=== PATIENT | male | born 1940 | race Caucasian/White ===

== ENCOUNTER → 2019-06-13 09:55 | Outpatient (CLI) | payer MEDICARE, BC ==
--- NOTE | 2019-06-16 11:13 | EC ---
PATIENT:CARMELA ALLEN DATE OF SERVICE: 06/13/19 SEX: M MEDICAL RECORD: [id number] DATE OF : 44 LOCATION:[facility] AGE OF PATIENT: 79 ADMISSION DATE: 06/13/19 REFERRING PHYSICIAN: INTERPRETING PHYSICIAN: THEA HUANG MD ECHOCARDIOGRAM REPORT ECHO CHARGES 4 ECHO COMPLETE Date: 06/13/19 CLINICAL DIAGNOSIS: CAD/DYSPNEA ON EXERTION/FATIGUE/ASSESS EF AND VAVLES HX OF RADITION ECHOCARDIOGRAPHIC MEASUREMENTS (adult normal given) AC root (d.<3.7cm) 4.2 cm LV Septum d (<1.2 cm> 1.0 cm Valve Excursion 1.0 cm LV Septum (systole) 1.3 cm Left Atria (s.<4.0cm> 4.1 cm LVPW d(<1.2cm) 1.4 cm RV (d.<2.3cm) 4.7 cm LVPW (sytole) 2.0 cm LV diastole(<5.6CM) 5.8 cm MV E-F(>70mm/sec) cm LV systole 3.7 cm LVOT Diameter 2.0 cm MV exc.(>10mm) cm Est.ejection fraction (50-75%) % DOPPLER: LVIT cm/sec A 148.0cm/sec E 116.0 cm/sec LA cm/sec RVSP 34 mmHg LVOT 114 cm/sec AOP1/2T m/s Asc. Ao 169 cm/sec RVOT 99 cm/sec RA cm/sec PA 105 cm/sec AV Gradient Peak 11.47mmHg AV Mean 6.07 mmHg AV Area 2.4 cm MV Gradient Peak 9.90 mmHg MV Mean 3.44 mmHg MV Area cm COMMENTS: Bridge Gang Worker: Melissa HARRIS Outreach Rep: 1 Dr. Huang TAPE# PACS Pericardial Effusion N DATE OF SERVICE: FINDINGS: 1. Left ventricular chamber size is mildly dilated. Left ventricular systolic function is preserved at 60%. 2. Left atrium is enlarged at 4.1 cm. Right atrium and right ventricle chamber sizes are as well mildly dilated. 3. Valvular structures have normal structure and motion. 4. Doppler interrogation reveals mild mitral regurgitation, mild tricuspid ECHOCARDIOGRAM REPORT [id number] CARMELA ALLEN regurgitation, no other valvular insufficiency or stenosis. Pulmonary systolic pressure is estimated at 34 mmHg. 5. No evidence of pericardial effusion or left ventricular thrombus. TRANSINT:[id number] Voice Confirmation ID: [id number] DOCUMENT ID: [id number] THEA HUANG MD at 1113 CC: [id number] DICTATION DATE: 06/13/19 1243 ACTUARIAL CONSULTANT: 06/13/19 1700 DEP CLI 06/13/19 [place] [id number] [place] [id number]
--- NOTE | 2019-06-16 11:13 | ST ---
PATIENT:CARMELA ALLEN MEDICAL RECORD: [id number] SEX: M LOCATION:[facility] ORDER #: ADMISSION DATE: 06/13/19 AGE OF PATIENT: 79 REFERRING PHYSICIAN: INTERPRETING PHYSICIAN: THEA SAMUEL MD DATE OF SERVICE: 06/13/2019 PROCEDURE: Nuclear stress test. INDICATION: Angina, coronary artery disease, and shortness of breath. He was exercised on standard Lexiscan protocol with 33 mCi of sestamibi injected at peak stress, 11 mCi used previously for rest images. FINDINGS: Gated SPECT reveals preserved ejection fraction at 62% with mild decreased thickening and brightening throughout the inferior segments. SPECT imaging Cardiolite was used as myocardial perfusion agent. There is a mixed perfusion defect inferiorly and apically. This is partially fixed, partially reversible. This includes the basal, mid, apical, inferior segments as well as the apex itself. The remaining segments are with homogeneous uptake at rest and stress. OVERALL IMPRESSION: This is an intermediate risk abnormal nuclear stress test, perfusion defect throughout the inferior and apical segments that is mixed partially fixed, partially reversible, does suggest the presence of hemodynamically significant coronary artery disease and a previous myocardial infarction, but ongoing ischemia exist. TRANSINT:[id number] Voice Confirmation ID: [id number] DOCUMENT ID: [id number] THEA SAMUEL MD at 1113 CC: JOSE GALLEGOS MD [id number] DICTATION DATE: 06/13/19 1251 DATA PROCESSING OPERATOR: 06/13/19 2249 DEP CLI 06/13/19 [place] [id number] [place] [address]
== END | disposition home or self-care (01) ==
LOC: D.HCCARDIO 09:55
PROVIDERS: ATTEND Internal Medicine Interventional Cardiology
DX: I25.10 Atherosclerotic heart disease of native coronary artery without angina pectoris (principal)

== ENCOUNTER → 2019-07-01 08:32 | Outpatient (CLI) | payer MEDICARE, BC ==
[~2019-07-01] VITALS: Ht 177.8 cm; Wt 93.2 kg
--- NOTE | ~2019-07-01 | OP ---
PATIENT NAME: CARMELA ALLEN MEDICAL RECORD: [id number] :42 LOCATION:[facility] ADMISSION DATE: SURGEON: THEA SAMUEL MD DATE OF OPERATION: 07/01/2019 PROCEDURES: 1. PTCA stent RCA. 2. PTCA stent left circumflex. 3. PTCA stent LAD. 4. IFR RCA. 5. IFR LAD. 6. Left heart catheterization. 7. Selective coronary angiography. 8. Left ventriculogram. INDICATION: Angina and coronary artery disease. PROCEDURE IN DETAIL: After informed consent was obtained and after detailed description of risks, benefits as well as alternative therapies, the patient elected to proceed with angiogram and angioplasty. The right femoral area was prepped and draped in normal sterile fashion. Right femoral artery was cannulated via modified Seldinger technique with placement of 6-Ukrainian sheath. All catheters exchanged through this sheath. FINDINGS: Left ventriculogram was performed in standard 30-degree DEL REAL view reveals good cardiac wall motion, ejection fraction estimated at 65%. SELECTIVE CORONARY ANGIOGRAPHY: 1. Left main is with no significant angiographic disease. 2. Left anterior descending has an 80% stenosis in the proximal vessel and IFR was abnormal. 3. Left circumflex has 90% stenosis in the proximal vessel. 4. Right coronary artery has multiple areas of 80+ percent stenosis and IFR was abnormal. PTCA STENT OF THE RCA: The stent used was a 2.5 x 38 mm [place] times 2. The result was 0% residual stenosis. PTCA STENT OF THE LEFT CIRCUMFLEX: The stent used was a 2.5 x 12 mm [place]. Result was 0% residual stenosis. PTCA STENT OF THE LAD: The stent used was a 3.0 x 30 mm [place]. Result was 0% residual stenosis. OVERALL IMPRESSION: Successful percutaneous transluminal coronary angioplasty stent RCA, LAD, and circumflex all going from 80% to 90% initial stenosis to 0% residual. TRANSINT:[id number] Voice Confirmation ID: [id number] DOCUMENT ID: [id number] OPERATIVE REPORT [id number] CARMELA ALLEN THEA SAMUEL MD CC: [id number] DICTATION DATE: 07/01/19 1113 BEAD WIRE TAPER: 07/01/19 1409 [facility] [address] [place] [address]
--- NOTE | ~2019-07-01 | HEMODYNAMI ---
PATIENT:CARMELA ALLEN MEDICAL RECORD: [id number] : 44 [facility] AD[facility]ION DATE: 07/01/19 Generatedon:07/01/201911:24 Patient name: CARMELA ALLEN Patient #: [id number] SSN: DO B: 1940 Date of study: 07/01/2019 Page: Of Hemodynamic Procedure Report Patient Data Patient Demographics Procedure consent was obtained First Name: CARMELA Gender: Male Last Name: ALEJANDRO : 1940 [facility] Initial: K Age: 79 year(s) Patient #: [id number] Race: Unknown Additional ID: [id number] Contact details Address: [address] State: [place] City: [place] Zip code: [address] Admission Admission Data Admission Date: 07/01/2019 Admission Time: 8:32 Height (in.): 70 BSA: 2.11 (m2) Height (cm.): 177.8 BMI: 29.42 (kg/m2) Weight (lbs.): 205.03 Weight (kg.): 93 Lab Results Lab Result Date: 07/01/2019 Lab Result Time: 0:00 Biochemistry Name Units Result Min Max BUN mg/dl 31 --(----)-* 7 18 Creatinine mg/dl 1.2 --(---*)-- 0.6 1.3 eGFR ml/min 61.67402 *-(----)-- 90 120 NONAFRICAN CBC Name Units Result Min Max Hemoglobin g/dl 12.5 *-(----)-- 13.5 17.5 Procedure Procedure Types Cath Procedure Diagnostic Procedure LHC LH w/Coronaries FFR/IVUS FFR Initial FFR Additional Sedation Charges Moderate Sedation up to 30 minutes PCI Procedure Coronary Stent Coronary Stent Initial Coronary Stent Initial x2 Hemochron ACT Test Procedure Description Procedure Date Procedure Date: 07/01/2019 Procedure Start Time: 10:28 Procedure End Time: 11:16 Procedure Staff Name Function Miki Huang MD Performing Physician Peterson Chaves RT Monitor Megan Fowler RN Nurse Jamie Golden RT Scrub Procedure Data Cath Procedure Fluoroscopy Diagnostic fluoroscopy Total fluoroscopy Time: time: 14.9 min 14.9 min Diagnostic fluoroscopy Total fluoroscopy dose: dose: 876.86 mGy 876.86 mGy Contrast Material Contrast Material Type Amount (ml) Isovue 370 220 Entry Location Entry Primary Successful Side Size Upsize Upsize Entry Closure Morales ccessful Closure Location (Fr) 1 (Fr) 2 (Fr) Remarks Device Remarks Radial Right 6 Fr Mechanical artery Short Compression Femoral Right 6 Fr Exoseal artery Short Estimated blood loss: 10 ml Diagnostic catheters Device Type Used For End Catheter Placement DIAGNOSTIC [place] 110cm 5 Procedure Fr catheter ([id number]) Procedure Complications No complications Procedure Medications Medication Administration Route Dosage Oxygen NC 3 l/min Lidocaine 2% added to field 20 Heparin Flush Bag added to field 2 bags (1000units/500ml NS) 0.9% NaCl I.V. 100 ml/hr Radial Cocktail added to field 1 syringe (Verapamil 2mg/Nitro 400mcg/Heparin 1500units) Versed I.V. 1 mg Fentanyl I.V. 50 mcg Heparin Bolus I.V. 4000 units Integrilin (Bolus I.V. 8.5 ml 2mg/ml) Integrilin (Bolus wasted 1.5 ml 2mg/ml) Versed I.V. 1 mg Fentanyl I.V. 50 mcg Versed I.V. 1 mg Versed I.V. 1 mg Plavix P.O. 600 mg Clonidine P.O. 0.1 mg Hemodynamics Rest BSA: 2.11 (m2) HGB: 12.5 (g/dl) O2 Consumption: Estimated: 234.39 (ml/min) O2 Co nsumption indexed: Estimated:111.09 (ml/min/m) Heart Rate: 61 (bpm) Pressure Samples Time Site Value (mmHg) Purpose Heart Use Rate(bpm) 10:31 AO 103/52(73) Snapshot 62 10:36 AO 152/64(99) Snapshot 70 Snapshots Pre Cath Intra NCS Post Cath Vital Signs Time Heart Resp SPO2 etCO2 NIBP (mmHg) Rhythm Pain Sedation Rate (ipm) (%) (mmHg) Status Level (bpm) 10:18:15 51 11 99 35.9 Measuring NSR (Missing) 10(A) 10:18:58 59 7 98 35.9 209/73(154) NSR (Missing) 10(A) 10:23:34 61 9 98 35.1 211/86(154) NSR (Missing) 10(A) 10:28:17 50 9 95 35.1 172/76(121) NSR (Missing) 10(A) 10:32:35 69 9 94 1.5 117/67(86) NSR (Missing) 10(A) 10:37:34 65 7 94 20.6 Measuring NSR (Missing) 9(A) 10:37:42 65 7 95 29.8 163/73(112) NSR (Missing) 9(A) 10:42:06 64 8 94 0 161/76(126) NSR (Missing) 9(A) 10:46:32 63 7 94 16 158/70(118) NSR (Missing) 9(A) 10:50:52 66 9 96 29.8 167/78(121) NSR (Missing) 9(A) 10:55:21 63 11 94 28.3 165/67(121) NSR (Missing) 9(A) 10:59:49 66 11 95 14.5 149/65(118) NSR (Missing) 9(A) 11:04:09 64 11 96 31.3 158/70(112) NSR (Missing) 9(A) 11:08:33 66 13 96 21.4 161/70(122) NSR (Missing) 9(A) 11:12:56 65 9 96 10.7 170/75(126) NSR (Missing) 10(A) Medications Time Medication Route Dose Verified Delivered Reason Notes Effectiveness by by 10:16:40 Oxygen NC 3 l/min Megan Megan for low Janeth Janeth 02 sats RN RN 10:16:54 Lidocaine 2% added 20ml Miki Megan used for to vial Reina PRETTY Janeth procedure field RN 10:17:02 Heparin Flush added 2 bags Miki Megan used for Bag to Reina PRETTY Janeth procedure (1000units/500ml field RN NS) 10:17:14 0.9% NaCl I.V. 100 Miki Megan used for ml/hr Reina PRETTY Janeth rn pacu 10:28:48 Radial Cocktail added 1 Miki Megan Per (Verapamil to syringe Reina Albertelor physician 2mg/Nitro field RN 400mcg/Heparin 1500units) 10:30:24 Versed I.V. 1 mg Miki Megan for Reina PRETTY Janeth sedation RN 10:30:34 Fentanyl I.V. 50 mcg Miki Megan for Reina Albertelor sedation RN 10:37:27 Heparin Bolus I.V. 4000 Miki Megan Per verified units Reina Fowler physician with dr. FREIDA lacey 10:37:47 Integrilin I.V. 8.5ml Miki Megan Per verified (Bolus 2mg/ml) Reina Rauschor physician with dr. FREIDA lacey 10:38:46 Integrilin wasted 1.5ml Miki Megan Per verified (Bolus 2mg/ml) Reina Rauschor physician with dr. FREIDA lacey 10:39:31 Versed I.V. 1 mg Miki Megan for Reina Albertelor sedation RN 10:39:36 Fentanyl I.V. 50 mcg Miki Megan for Reina PRETTY Janeth sedation RN 10:49:13 Versed I.V. 1 mg Miki Megan for Reina PRETTY Janeth sedation RN 10:57:52 Versed I.V. 1 mg Miki Megan for Reina PRETTY Janeth sedation RN 11:10:17 Plavix P.O. 600 mg Miki Megan Per Reina Albertelor physician RN 11:10:32 Clonidine P.O. 0.1 mg Miki Megan Per Reina Albertelor physician wire frame dipper Log Time Note 10:00:28 Jamie GROSS(R) sent for patient. Start room use. 10:08:37 Time tracking: Regular hours (M-F 7:00 - 5:00) 10:08:41 Plan of Care:Hemodynamics will remain stable., Cardiac rhythm will remain stable., Comfort level will be maintained., Respiratory function will remain adequate., Patient/ family verbilizes understanding of procedure., Procedure tolerated without complication., Recovers from procedure without complications.. 10:10:33 Patient received from Pre/Post Procedure Room to [facility] 3 Alert and oriented. Tansferred to table in Supine position. 10:10:36 Signed procedure consent form obtained from patient. 10:10:36 Warm blankets applied, and enio hugger turned on for patient comfort. 10:10:37 Correct patient and procedure confirmed by team. 10:10:37 ECG and BP/O2 sat monitors applied to patient. 10:16:24 Vital chart was started 10:16:40 Oxygen 3 l/min NC was administered by Megan Fowler RN; for low 02 sats; Verbal order read back and verified. 10:16:54 Lidocaine 2% 20ml vial added to field was administered by Megan Fowler RN; used for procedure; Verbal order read back and verified. 10:17:02 Heparin Flush Bag (1000units/500ml NS) 2 bags added to field was administered by Megan Fowler RN; used for procedure; Verbal order read back and verified. 10:17:14 0.9% NaCl 100 ml/hr I.V. was administered by Megan Fowler RN; used for procedure; Verbal order read back and verified. 10:20:37 Baseline sample Acquired. 10:20:41 Rhythm: sinus rhythm 10:20:42 Full Disclosure recording started 10:22:03 H&P Date Dictated: 06/02/2019 Within 30 days and on chart., H&P Addendum completed by physician on day of procedure. (MUST COMPLETE FOR ALL OUTPATIENTS). 10:22:07 Pre-procedure instructions explained to patient. 10:22:07 Pre-op teaching completed and patient verbalized understanding. 10:22:10 Family in patients room. 10:22:11 Patient NPO since Midnight. 10:22:12 Is the patient allergic to Iodine/contrast media? No. 10:22:42 Is patient on blood thinner?No 10:22:54 Patient diabetic? No. 10:22:55 Previous problem with sedation/anesthesia? No ? 10:22:56 Snore? Yes 10:22:58 Sleep apnea? No 10:22:59 Deviated septum? No 10:23:01 Opens mouth fully? Yes 10:23:02 Sticks out tongue? Yes 10:23:04 Airway obstruction? No ? 10:23:08 Dentures? Yes in tight 10:23:13 Pre procedure: right dorsailis pedis pulse 1+ Palpable, but thready & weak; easily obliterated 10:23:16 Modified Ebenezer's test Ulnar < 7 seconds 10:23:17 Patient pain scale 0/10 ?. 10:23:21 IV patent on arrival in left forearm with 0.9% NaCl at [facility]. 10:23:23 Lab results completed and on chart. 10:23:32 Stress Test: yes; abnormal inferior, apical 10:23:39 Right Radial & Right Groin area was prepped with chlora-prep and draped in sterile fashion 10:23:40 Alarms reviewed by R. N. 10:23:40 Sharps counted by scrub and verified by R.N. 10:25:10 Risk of Mortality: 0.1 10:25:13 Risk of blood transfusion: 0.1 10:25:15 Risk of MALAIKA: 2.3 10:25:29 Use device set Radial Dx or PCI 10:25:31 Tegaderm 4 x 4 (1626W) opened to sterile field. 10:25:32 ACIST Syringe (42294) opened to sterile field. 10:25:33 Medline Cath Pack ([id number]) opened to sterile field. 10:25:33 Bag Decanter (2002S) opened to sterile field. 10:25:33 ACIST Hand Control (73873) opened to sterile field. 10:25:34 ACIST Manifold (27911) opened to sterile field. 10:25:34 MBrace Wrist Support ([id number]) opened to sterile field. 10:25:36 EMERALD Guide Wire (153-773) opened to sterile field. 10:25:36 SHEATH 6FR RAIN (3938454) opened to sterile field. 10:25:48 Patient Height : 70 inches 10:25:51 Patient Weight : 205.03 lbs 10:26:09 Lab Result : Creatinine 1.2 mg/dl 10:26:09 Lab Result : BUN 31 mg/dl 10:26:09 Lab Result : eGFR NONAFRICAN 61.84264 ml/min 10:26:09 Lab Result : Hemoglobin 12.5 g/dl 10::38 Physician arrived 10::39 --------ALL STOP TIME OUT------ 10::39 Final Timeout: patient, procedure, and site verified with staff and physician. All members of the team are in agreement. 10:26:41 Right Radial & Right Groin site verified by team. 10:26:45 Fire Safety Assessment: A--An alcohol-based skin anteseptic being used preoperatively., C--Open oxygen or nitrous oxide is being used., D--An ESU, laser, or fiber-optic light is being used. 10:26:47 Physical assessment completed. ASA score P 2 - A patient with mild systemic disease as per Miki Huang MD. 10:26:52 2) 60-89 Mildly reduced kidney function, and other findings (as for stage 1) point to kidney disease. 10:26:55 Maximum allowable contrast dose (3.7 X eGFR X 0.75)172 ml. 10:26:59 Sedation plan: IV Moderate Sedation Medication:Versed, Fentanyl 10:28:48 Radial Cocktail (Verapamil 2mg/Nitro 400mcg/Heparin 1500units) 1 syringe added to field was administered by Megan Fowler RN; Per physician; Verbal order read back and verified. 10:28:48 Procedure started. 10:28:52 Local anesthetic to right radial artery with Lidocaine 2% by Miki Huang MD.INITIAL ACCESS ONLY 10:30:02 A 6 Fr Short sheath was inserted into the Right Radial artery 10:30:06 Zero performed for pressure channel P1 10:30:08 Zero performed for pressure channel P1 10:30:24 Versed 1 mg I.V. was administered by Megan Fowler RN; for sedation; Verbal order read back and verified. 10:30:28 A DIAGNOSTIC [place] 110cm 5 Fr catheter (166630) was advanced over the wire and used for Procedure. 10:30:34 Fentanyl 50 mcg I.V. was administered by Megan Fowler RN; for sedation; Verbal order read back and verified. 10:30:54 LV angiography performed. 10:30:59 LV gram done using DEL REAL 10:31:05 EF : 55 % 10:31:11 Injector settings: Ml/sec: 5, Volume: 15, 10:31:39 LCA angiography performed. 10:31:58 Use device set [facility] PCI 10:32:46 Catheter exchanged over wire. 10:34:16 GUIDE 6FR AR 2.0 catheter ([id number]) opened to sterile field. 10:34:29 6 Fr AR 2 guide catheter was inserted over the wire 10:34:42 INFLATOR Merit Nyce Technologypak (VT4886) opened to sterile field. 10:34:45 CHOICE PT Extra Support 182cm wire ([id number]) opened to sterile field. 10:34:49 Crete Verrata Plus pressure wire (31393G) opened to sterile field. 10:35:42 RCA angiography performed. 10:35:44 ACCDominant side:Co-Dominant 10:36:21 FFR/IFR wire advanced. 10:37:27 Heparin Bolus 4000 units I.V. was administered by Megan Fowler RN; Per physician; verified with dr. huang Verbal order read back and verified. 10:37:47 Integrilin (Bolus 2mg/ml) 8.5ml I.V. was administered by Megan Fowler RN; Per physician; verified with dr. huang Verbal order read back and verified. 10:38:46 Integrilin (Bolus 2mg/ml) 1.5ml wasted was administered by Megan Fowler RN; Per physician; verified with dr. huang Verbal order read back and verified. 10:39:24 Wire and Guide removed unable to engage RCA and advance wire. Moving to Femoral approach. 10:39:26 SHEATH 6FR [place] (GNP245) opened to sterile field. 10:39:30 Local anesthetic to right femoral artery with Lidocaine 2% by Miki Huang MD.ADDITIONAL ACCESS 10:39:31 Versed 1 mg I.V. was administered by Megan Fowler RN; for sedation; Verbal order read back and verified. 10:39:36 Fentanyl 50 mcg I.V. was administered by Megan Fowler RN; for sedation; Verbal order read back and verified. 10:39:47 A 6 Fr Short sheath was inserted into the Right Femoral artery 10:40:03 6 Fr AR 2 guide catheter was inserted over the wire 10:41:32 FFR/IFR wire advanced. 10:42:35 Wire advanced across lesion. 10:42:43 mRCA lesion measured at 0.80 with IFR 10:43:30 Pre PCI Site: [place] mRCA has 80% stenosis. 10:43:56 ACC Pre-intervention SARAHY Flow is 3. 10:44:04 CPTXS wire advanced. 10:44:07 Wire advanced across lesion. 10:44:59 IFR wire removed. 10:46:00 The NICOLAS RX 2.5 x 38 stent ([id number]) was advanced then removed because of failure to cross lesion 10:47:19 Inflate balloon Inflation number: 1 A Mozec Rx 2.5 x 38 balloon was prepped and advanced across the Mid RCA 80, then inflated to 21 JAMES for 0:10 (min:sec) . 10:47:52 Inflation number: 2 The Mozec Rx 2.5 x 38 balloon was reinflated across the Mid RCA 80, to 21 JAMES for 0:10 (min:sec) . 10:48:33 Balloon removed over the wire. 10:49:13 Versed 1 mg I.V. was administered by Megan Fowler RN; for sedation; Verbal order read back and verified. 10:49:50 Place stent Inflation Number: 3 A NICOLAS RX 2.5 x 38 stent ([id number]) was prepped and advanced across the Mid RCA 80. The stent was deployed at 17 JAMES for 0:10 (min:sec) 0. 10:51:19 Stent catheter was removed intact over wire. 10:52:11 Place stent Inflation Number: 1 A NICOLAS RX 2.5 x 38 stent ([id number]) was prepped and advanced across the Prox RCA 80. The stent was deployed at 21 JAMES for 0:10 (min:sec) 0. 10:52:40 Stent catheter was removed intact over wire. 10:52:41 Wire removed. 10:52:42 Guide catheter removed. 10:53:32 Post PCI Site: [place] mRCA has 0% stenosis. 10:53:34 ACC Post-intervention SARAHY Flow is 3. 10:54:06 GUIDE 6FR EBU 4.0 guide catheter ([id number]) opened to sterile field. 10:54:29 6 Fr EBU 4 guide catheter was inserted over the wire 10:55:16 FFR/IFR wire advanced. 10:56:02 Wire advanced across lesion. 10:56:09 mLAD lesion measured at 0.64 with IFR 10:56:20 Pre PCI Site: [place] mLAD has 75% stenosis. 10:56:32 ACC Pre-intervention SARAHY Flow is 3. 10:57:52 Versed 1 mg I.V. was administered by Megan Janeth RN; for sedation; Verbal order read back and verified. 10:58:38 Place stent Inflation Number: 1 A NICOLAS RX 3.0 x 30 stent ([id number]) was prepped and advanced across the Mid LAD 75. The stent was deployed at 19 JAMES for 0:10 (min:sec) 0. 10:58:45 ACT drawn and resulted at 279 seconds. (normal therapeutic range 180-240 seconds). 10:59:17 Stent catheter was removed intact over wire. 10:59:18 Wire removed. 10:59:29 CHOICE PT Extra Support 182cm wire ([id number]) opened to sterile field. 10:59:46 New CPTXS wire advanced. 11:01:16 Pre PCI Site: [place] mCirc has 95% stenosis. 11:01:19 ACC Pre-intervention SARAHY Flow is 3. 11:01:44 Post PCI Site: [place] mLAD has 0% stenosis. 11:01:50 ACC Post-intervention SARAHY Flow is 3. 11:06:01 Inflate balloon Inflation number: 1 A EUPHORA 2.5 x 10 Balloon ([id number]) was prepped and advanced across the Mid CX 90, then inflated to 15 JAMES for 0:10 (min:sec) . 11:06:14 Balloon removed over the wire. 11:07:06 Place stent Inflation Number: 2 A NICOLAS RX 2.5 x 12 stent ([id number]) was prepped and advanced across the Mid CX 90. The stent was deployed at 17 JAMES for 0:10 (min:sec) 0. 11:08:07 Stent catheter was removed intact over wire. 11:08:08 Wire removed. 11:08:09 Guide catheter removed. 11:08:18 Post PCI Site: [place] mCirc has 0% stenosis. 11:08:22 ACC Post-intervention SARAHY Flow is 3. 11:08:29 EXOSEAL 6Fr (EX600) opened to sterile field. 11:08:34 ZEPHYR REGULAR TR BAND (488329) opened to sterile field. 11:09:39 Sheath removed intact; hemostasis achieved with Exoseal to the Right Femoral artery. 11:09:42 Procedure ended.(Physican Out) 11:10:17 Plavix 600 mg P.O. was administered by Megan Janeth RN; Per physician; Verbal order read back and verified. 11:10:32 Clonidine 0.1 mg P.O. was administered by Megan Fowler RN; Per physician; Verbal order read back and verified. 11:12:11 Fluoroscopy time 14.90 minutes. 11:12:16 Fluoroscopy dose: 876.86 mGy 11:12:16 Flurop Dose total: 876.86 11:12:24 Dose Area Product 6387.80 mGy/cm. 11:12:30 Contrast amount:Isovue 370 220ml. 11:12:35 Maximum allowable dose exceeded? Yes. 11:12:36 Sharps counted by scrub and verified by R.N. 11:12:50 Sheath removed intact; hemostasis achieved with Mechanical Compression to the Right Radial artery. 11:13:04 [place] band inflated with 10cc of air. 11:13:08 Insertion/operative site no bleeding no hematoma. 11:13:12 Post-op/insertion site Right Femoral artery dressed using a 4 x 4 and Tegaderm. 11:13:14 Post Procedure Pulses reassessed and unchanged 11:13:16 Post-procedure physical assessment completed. ASA score P 2 - A patient with mild systemic disease as per Miki Huang MD. 11:13:18 Post procedure rhythm: unchanged. 11:13:21 Estimated blood loss: 10 ml 11:13:23 Post procedure instruction explained to patient.Patient verbalizes understanding. 11:13:23 Patient needs reinforcement of post procedure teaching. 11:14:51 Procedure type changed to Cath procedure, Diagnostic procedure, [facility], [facility] w/Coronaries, FFR/IVUS, FFR Initial, FFR Additional, Sedation Charges, Moderate Sedation up to 30 minutes, PCI procedure, Coronary Stent, Coronary Stent Initial, Coronary Stent Initial x2, Hemochron ACT Test 11:15:45 Procedure and supply charges have been captured, reviewed, submitted and are correct. 11:15:48 Procedure Complication : No complications 11:16:01 Vital chart was stopped 11:16:02 [facility] Findings: MVD- PCI performed (see procedure note) 11:16:04 Operative report dictated upon procedure completion. 11:16:05 See physician's report for complete and final results. 11:16:12 Report given to Pre/Post Procedure Room. 11:16:15 Patient transfered to Pre/Post Procedure Room with Stretcher. 11:16:18 Procedure ended. 11:16:18 Full Disclosure recording stopped 11:18:18 End room use (Document Last) 11:19:01 End room use (Document Last) 11:19:25 End room use (Document Last) Intervention Summary Intervention Notes Time ActionType Lesion and Equipment Used Action# Pressure Duration Attributes 10:46:00 Discard NICOLAS RX 2.5 x Stent 38 stent ([id number]) 10:47:19 Inflate Mid RCA Mozec Rx 2.5 x 1 21 00:10 balloon 38 balloon 10:47:52 Reinflate Mid RCA Mozec Rx 2.5 x 2 21 00:10 balloon 38 balloon 10:49:50 Place stent Mid RCA NICOLAS RX 2.5 x 3 17 00:10 38 stent ([id number]) 10:52:11 Place stent Prox RCA NICOLAS RX 2.5 x 1 21 00:10 38 stent ([id number]) 10:58:38 Place stent Mid LAD NICOLAS RX 3.0 x 1 19 00:10 30 stent ([id number]) 11:06:01 Inflate Mid CX EUPHORA 2.5 x 1 15 00:10 balloon 10 Balloon ([id number]) 11:07:06 Place stent Mid CX NICOLAS RX 2.5 x 2 17 00:10 12 stent ([id number]) Device Usage Item Name Manufacture Quantity Catalog Number Hospital Part Current Minimal Lot# / Charge Number Stock Stock Serial# Code Tegaderm 4 x 4 3M 1 1626W [id number] 999920 499816 5 (1626W) ACIST Syringe Acist 1 03784 259224 209749 477034 20 (49361) Medical Systems Inc Medline Cath Medline 1 [id number] 040785 07960 177146 5 Pack ([id number]) Bag Decanter Microtek 1 2001S 897228 88736 677272 5 (2001S) Medical Inc. ACIST Hand Acist 1 85879 968885 243836 126504 5 Control Medical (42215) Systems Inc ACIST Manifold Acist 1 99613 388289 675405 121683 5 (07910) Medical Systems Inc MBrace Wrist Advanced 1 140-0250-00 565821 00864 043378 5 Support Vascular (410257512) Dynamics EMERALD Guide Cardinal 1 502-455 189360 012546 843035 5 Wire (502-455) Health SHEATH 6FR Cardinal 1 2302866 900069 2883521 654226 5 RAIN (5610098) Health DIAGNOSTIC Terumo 1 40-5013 733397 661948 273874 5 [place] 110cm 5 Fr catheter (112139) GUIDE 6FR AR Medtronic 1 [id number] 307747 64447 929056 1 2.0 catheter (FG4ZV53) INFLATOR Merit Merit 1 NH9933 695251 820153 206120 15 Cinexio (FQ8321) CHOICE PT Stokes 2 [id number] 920347 505076 270611 5 Extra Support Scientific 182cm wire (9860152C4) Crete Crete 1 58708P 903089 718853382 883532 5 Verrata Plus pressure wire (95362I) SHEATH 6FR Terumo 1 SKU878 511351 949494 792239 40 [place] (NZW078) NICOLAS RX 2.5 x Medtronic 2 [id number] 369388 5114405 100469 5 [id number] 38 stent [id number] ([id number]) Mozec Rx 2.5 x Cardinal 1 [id number] 827334 178527 214226 5 UMOD38 38 balloon Health GUIDE 6FR EBU Medtronic 1 [id number] 971252 39952 117630 1 4.0 guide catheter (CG8APG54) NICOLAS RX 3.0 x Medtronic 1 [id number] 768380 5750308 463503 5 [id number] 30 stent ([id number]) EUPHORA 2.5 x Medtronic 1 [id number] 659642 960878 716286 5 [id number] 10 Balloon ([id number]) NICOLAS RX 2.5 x Medtronic 1 [id number] 549538 2857440 660467 5 [id number] 12 stent ([id number]) EXOSEAL 6Fr Cardinal 1 EX600 852707 216564 994494 10 (EX600) Health ZEPHYR REGULAR Cardinal 1 200272 532434 0358928 970827 5 TR BAND Health (966191) Signature Audit [place] Stage Time Signature Unsigned Intra-Procedure 07/01/2019 Peterson Chaves RT(R) 11:18:34 AM Intra-Procedure 07/01/2019 Peterson Chaves RT(R) 11:19:01 AM Intra-Procedure 07/01/2019 Megan Fowler 11:19:25 AM RN Intra-Procedure 07/01/2019 Miki Huang MD 11:24:28 AM [place] [id number]
[~2019-07-01 08:32] MED LIST: BAYER CHEWABLE81 MG; BAYER CHEWABLE81 MG PO; FLOMAX0.4 MG PO; LIPITOR40 MG PO; MOBIC7.5 MG PO; NORVASC10 MG PO; OXYBUTYNIN CHLOR5 MG PO; PLAVIX75 MG PO; PROTONIX40 MG PO; SINGULAIR10 MG PO; TOPROL XL50 MG PO; TRIAMTERENE-HC1 EAC3 PO; TYLENOL PM1 TAB PO
[2019-07-01 08:53] VITALS: BP 191/78; Ht 177.8 cm; Wt 93.2 kg
[2019-07-01 09:08] LABS: BASOPHILS 0.2 % (0-2); EOSINOPHILS 2.4 % (0-7); HEMATOCRIT 37.5 % (42.0-54.0); HEMOGLOBIN 12.5 g/dL (13.5-17.5); LYMPHOCYTES 17.6 % (15-50); MCH 32.6 pg (26.0-34.0); MCHC 33.3 g/dL (31.0-37.0); MCV 97.9 fL (80.0-100.0); MEAN PLATELET VOLUME 9.3 fL (7.4-10.4); MONOCYTES 6.7 % (2-11); NEUTROPHILS 73.1 % (40-80); PLATELET COUNT 123 10x3/uL (130-400); RBC 3.83 10x6/uL (4.20-6.10); RDW 13.3 % (11.5-14.5); WBC 4.9 10x3/uL (4.8-10.8)
[2019-07-01 09:21] LABS: ANION GAP 12.3 mmol/L (8-16); CALCIUM 9.3 mg/dL (8.5-10.1); CARBON DIOXIDE 30.6 mmol/L (21.0-32.0); CHOL - HDL RATIO 2.3 ratio (2.3-4.9); CREATININE - SERUM 1.2 mg/dL (0.6-1.3); LDL-HDL RATIO 1.1 ratio (1.5-3.5); POTASSIUM - SERUM 3.9 mmol/L (3.5-5.1)
--- NOTE | 2019-07-01 11:25 | NUR ---
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 PT INSTRUCTED ON KEEPING R ARM STRAIGHT AND R LEG STRAIGHT WITH HOB FLAT. AT BS. C/L IN REACH.
--- NOTE | 2019-07-01 11:40 | NUR ---
PT VOIDED 500 ML CLEAR, YELLOW URINE IN URINAL. BOTH R GROIN AND R WRIST SITES C/D/I, NO SIGN OF BLEEDING OR HEMATOMA.
--- NOTE | 2019-07-01 12:05 | NUR ---
DR. SAMUEL IN TO PT AND SPOKE WITH FAMILY. R GROIN AND R WRIST SITES C/D/I, NO S/S OF BLEEDING/HEMATOMA.
--- NOTE | 2019-07-01 12:20 | NUR ---
R GROIN AND WRIST SITES C/D/I, NO S/S OF BLEEDING OR HEMATOMA. AWAKENS EASILY, DENIES NEEDS. C/L IN REACH.
--- NOTE | 2019-07-01 12:50 | NUR ---
RESTING QUIETLY, VSS. R GROIN AND R WRIST SITES C/D/I, NO S/S OF BLEEDING OR HEMATOMA NOTED. ICE CHIPS PROVIDED.
--- NOTE | 2019-07-01 13:21 | NUR ---
PT TOLERATING ICE CHIPS. R GROIN AND WRIST SITES C/D/I, NO S/S OF BLEEDING OR HEMATOMA NOTED. VSS. C/L IN REACH.
--- NOTE | 2019-07-01 13:55 | NUR ---
R GROIN AND WRIST SITES C/D/I. VOIDED 300ML CLEAR, YELLOW URINE. FAMILY AT BS. VSS. C/L IN REACH.
--- NOTE | 2019-07-01 14:15 | NUR ---
R GROIN AND WRIST SITES C/D/I. 2 CC AIR REMOVED FROM TR BAND. PT HOB UP. SANDWICH AND ICED TEA PROVIDED. AT BS.
--- NOTE | 2019-07-01 14:38 | NUR ---
R WRIST SITE C/D/I. 3 CC AIR REMOVED. NO SIGN OF BLEEDING. PT ATE ALL OF SANDWICH. DENIES OTHER NEEDS.
--- NOTE | 2019-07-01 15:10 | NUR ---
PIV D/C'D WITH CATH INTACT, DSG APPLIED. REMAINING AIR REMOVED, NO BLEEDING, SMALL BRUISE NOTED. D/C INSTRUCTIONS AND TEACHING DONE - COPIES WITH . PT ALLOWED UP TO GET DRESSED WITH ASSISTING.
--- NOTE | 2019-07-01 15:15 | NUR ---
TR BAND OFF, NO BLEEDING - DSG APPLIED. PT TO BR INDEPENDENTLY. THEN D/C'D HOME VIA . PT HAS D/C PAPER WORK AND BELONGINGS. NO S/S OF DISTRESS.
== END | disposition home or self-care (01) ==
LOC: D.CATH 08:32
PROVIDERS: ATTEND Internal Medicine Interventional Cardiology
DX: I25.119 Atherosclerotic heart disease of native coronary artery with unspecified angina pectoris (principal); R06.09 Other forms of dyspnea; R53.81 Other malaise
CPT/HCPCS: 93458; 93571; 93572; C9600 ×3